=== PATIENT | female | born 1950 | race African-American/Black ===

== ENCOUNTER 2022-07-20 09:58 | Inpatient (IN) ==
[2022-07-20 10:38] LABS: Basophils # 0.1 10*3/uL (0.0-0.2); Basophils % 0.4 % (0.0-0.8); Eosinophils # 0.1 10*3/uL (0.0-0.87); Eosinophils % 0.4 % (0.00-10.9); Hematocrit 30.3 VOL% (35.7-47.0); Hemoglobin 9.7 GM/DL (12.0-16.0); Immature Granulocytes % 0.7 %; Immature Granulocytes Absolute 0.09 #; Lymphocytes # 0.6 10*3/uL (1.4-4.0); Lymphocytes % 4.7 % (21.3-54.2); Mean Corpuscular Volume 78.5 FL (87-102); Mean Platelet Volume 10.9 FL (9.6-12.0); Monocytes # 0.9 10*3/uL (0.11-0.8); Monocytes % 6.5 % (1.7-12.7); Neutrophils % 87.3 % (38.7-73.9); Platelet Count 296 T/CUMM (130-400); Red Blood Count 3.86 MC/CUMM (3.8-5.5); Red Cell Distribution Width 15.5 % (9.3-17.3); White Blood Count 13.7 T/CUMM (4-12)
[2022-07-20 10:57] LABS: Hypochromia Slight; Lymphocytes 1 % (20-55); Microcytosis Slight; Platelet Estimate Adequate; Total Cells Counted 100
[2022-07-20 11:12] LABS: Albumin 2.7 G/DL (3.4-5.0); Bilirubin,Total 0.5 MG/DL (0.20-1.00); Calcium 8.7 MG/DL (8.5-10.1); Free T4 (Free Thyroxine) 1.26 NG/DL (0.76-1.46); Osmolality,Calculated 271.2 MOS/KG (273-304); Thyroid Stimulating Hormone 0.37 uIU/ml (0.358-3.74); Total Protein 8.4 G/DL (6.4-8.2)
[2022-07-20 11:21] LABS: Potassium 2.1 MMOL/L (3.5-5.1)
[2022-07-20] MEDS ORDERED: POTASSIUM CHLORIDE 20 MEQ TABLET PO STA (11:23)
[2022-07-20] MEDS: SODIUM CHLOR 0.9% KCL 40 MEQ 40 MEQ/1,000 ML BAG IV SCH ×2 (11:34→23:13)
[2022-07-20] MEDS ORDERED: ONDANSETRON 4 MG/2 ML VIAL IV PRN (11:51)
[2022-07-20] MEDS ORDERED: ACETAMINOPHEN 325 MG TABLET PO PRN (11:51)
[2022-07-20] MEDS ORDERED: GLUCAGON 1 MG VIAL IM PRN (11:54)
[2022-07-20] MEDS ORDERED: DEXTROSE 10% 250 ML BAG IV PRN (11:54)
[2022-07-20 12:29] LABS: Risk Ratio 2.63; VLDL Cholesterol 19.8 MG/DL
[2022-07-20] MEDS: INSULIN LISPRO 100 UNIT/ML SUBCUT SCH ×2 (16:06→20:44)
[2022-07-20] MEDS ORDERED: POTASSIUM CHLORIDE 20 MEQ TABLET PO ONE ×2 (17:14→23:15)
[2022-07-20] MEDS: GABAPENTIN 300 MG CAPSULE PO SCH (21:02)
[2022-07-20] MEDS: traZODone 50 MG TABLET PO SCH (21:02)
[2022-07-21 05:23] LABS: Basophils % 0.3 % (0.0-0.8); Eosinophils % 0.1 % (0.00-10.9); Hematocrit 30.8 VOL% (35.7-47.0); Hemoglobin 9.1 GM/DL (12.0-16.0); Immature Granulocytes % 0.5 %; Immature Granulocytes Absolute 0.06 #; Lymphocytes % 7.4 % (21.3-54.2); Mean Corpuscular HGB Conc 29.5 GM/DL (32-36); Mean Corpuscular Volume 82.1 FL (87-102); Mean Platelet Volume 11.3 FL (9.6-12.0); Monocytes # 1.3 10*3/uL (0.11-0.8); Neutrophils % 81.7 % (38.7-73.9); Platelet Count 278 T/CUMM (130-400); Red Blood Count 3.75 MC/CUMM (3.8-5.5); Red Cell Distribution Width 15.8 % (9.3-17.3); White Blood Count 13.1 T/CUMM (4-12)
[2022-07-21 05:37] LABS: Calcium 8.9 MG/DL (8.5-10.1); Osmolality,Calculated 278.7 MOS/KG (273-304); Potassium 3.1 MMOL/L (3.5-5.1)
[2022-07-21 05:43] LABS: % Iron Saturation 6.6 % (18-50); Ferritin 103.4 ng/mL (8-252)
[2022-07-21] MEDS: POTASSIUM CHLORIDE RIDER 10 MEQ/100 ML PREMIX IV PRN ×4 (06:11→17:15)
[2022-07-21] MEDS: SODIUM CHLOR 0.9% KCL 40 MEQ 40 MEQ/1,000 ML BAG IV SCH (06:37)
[2022-07-21] MEDS ORDERED: POTASSIUM CHLORIDE 20 MEQ TABLET PO ONE (07:13)
[2022-07-21] MEDS: ASPIRIN EC 81 MG TABLET PO SCH (08:17)
[2022-07-21] MEDS: CHOLECALCIFEROL 5,000 UNIT TABLET PO SCH (08:17)
[2022-07-21] MEDS: ATORVASTATIN 40 MG TABLET PO SCH (08:17)
[2022-07-21] MEDS: CLOPIDOGREL 75 MG TABLET PO SCH (08:17)
[2022-07-21] MEDS: INSULIN LISPRO 100 UNIT/ML SUBCUT SCH ×4 (08:17→21:41)
[2022-07-21] MEDS: PANTOPRAZOLE 40 MG TABLET PO SCH (08:17)
[2022-07-21] MEDS: FERROUS SULFATE 325 MG TABLET PO SCH ×2 (08:17→21:55)
[2022-07-21] MEDS ORDERED: IRON (CARBONYL)/VIT C/B12/FA TABLET PO SCH (09:00)
[2022-07-21 10:59] LABS: Amorphous Crystals,Urine Few /HPF (Few); Mucus,Urine Occasional /LPF (Occasional); Squamous Epithelial Cell,Urine Occasional /HPF (0-10)
[2022-07-21 11:00] LABS: Urine Appearance Slightly Hazy (Clear); Urine Color Yellow (Yellow); Urine pH 5.5 (4.5-8.0)
[2022-07-21 11:01] LABS: Bilirubin,Urine Negative (Negative); Blood, Urine Moderate mg/dL (Negative); Glucose,Urine (UA) 100 mg/dL (Negative); Ketones,Urine Negative (Negative); Nitrite,Urine Negative (Negative); Urine Specific Gravity 1.025 (1.001-1.035); Urine Urobilinogen 0.2 eU/dL (<2.0)
[2022-07-21] MEDS: metroNIDAZOLE INJ 500 MG/100 ML PREMIX IV SCH ×2 (13:06→21:55)
[2022-07-21] MEDS: CIPROFLOXACIN INJ 400 MG/200 ML PREMIX IV SCH (15:29)
[2022-07-21] MEDS: traZODone 50 MG TABLET PO SCH (21:40)
[2022-07-21] MEDS: GABAPENTIN 300 MG CAPSULE PO SCH (21:55)
[2022-07-22] MEDS: SODIUM CHLOR 0.9% KCL 40 MEQ 40 MEQ/1,000 ML BAG IV SCH ×3 (02:53→13:39)
[2022-07-22] MEDS: CIPROFLOXACIN INJ 400 MG/200 ML PREMIX IV SCH ×2 (03:06→16:09)
[2022-07-22] MEDS: metroNIDAZOLE INJ 500 MG/100 ML PREMIX IV SCH ×3 (04:18→20:47)
[2022-07-22 05:56] LABS: Basophils % 0.4 % (0.0-0.8); Eosinophils # 0.1 10*3/uL (0.0-0.87); Eosinophils % 0.6 % (0.00-10.9); Hematocrit 25.9 VOL% (35.7-47.0); Hemoglobin 8.1 GM/DL (12.0-16.0); Immature Granulocytes % 0.7 %; Immature Granulocytes Absolute 0.07 #; Lymphocytes # 0.8 10*3/uL (1.4-4.0); Lymphocytes % 8.2 % (21.3-54.2); Mean Corpuscular HGB Conc 31.3 GM/DL (32-36); Mean Corpuscular Volume 79.9 FL (87-102); Mean Platelet Volume 11.4 FL (9.6-12.0); Monocytes # 1.2 10*3/uL (0.11-0.8); Neutrophils % 78.1 % (38.7-73.9); Platelet Count 266 T/CUMM (130-400); Red Blood Count 3.24 MC/CUMM (3.8-5.5); White Blood Count 9.9 T/CUMM (4-12)
[2022-07-22 06:19] LABS: Calcium 8.4 MG/DL (8.5-10.1); Osmolality,Calculated 276.7 MOS/KG (273-304); Potassium 2.6 MMOL/L (3.5-5.1)
[2022-07-22] MEDS ORDERED: MAGNESIUM SULF RIDER 2 GM/50 ML PREMIX IV PRN (06:34)
[2022-07-22] MEDS: POTASSIUM CHLORIDE 20 MEQ TABLET PO PRN (07:34)
[2022-07-22] MEDS ORDERED: MAGNESIUM SULF RIDER 2 GM/50 ML PREMIX IV ONE (09:00)
[2022-07-22] MEDS: FERROUS SULFATE 325 MG TABLET PO SCH ×2 (09:34→20:47)
[2022-07-22] MEDS: PANTOPRAZOLE 40 MG TABLET PO SCH (09:34)
[2022-07-22] MEDS: ATORVASTATIN 40 MG TABLET PO SCH (09:34)
[2022-07-22] MEDS: CLOPIDOGREL 75 MG TABLET PO SCH (09:34)
[2022-07-22] MEDS: ASPIRIN EC 81 MG TABLET PO SCH (09:34)
[2022-07-22] MEDS: INSULIN LISPRO 100 UNIT/ML SUBCUT SCH ×4 (09:35→23:29)
[2022-07-22] MEDS: CHOLECALCIFEROL 5,000 UNIT TABLET PO SCH (09:35)
[2022-07-22] MEDS: LOPERAMIDE 2 MG CAPSULE PO SCH ×2 (16:08→20:47)
[2022-07-22] MEDS: traZODone 50 MG TABLET PO SCH (20:47)
[2022-07-22] MEDS: GABAPENTIN 300 MG CAPSULE PO SCH (20:47)
[2022-07-22] MEDS: POTASSIUM CHLORIDE RIDER 10 MEQ/100 ML PREMIX IV PRN ×2 (20:48→23:36)
[2022-07-23] MEDS: POTASSIUM CHLORIDE RIDER 10 MEQ/100 ML PREMIX IV PRN ×3 (01:09→04:19)
[2022-07-23] MEDS: CIPROFLOXACIN INJ 400 MG/200 ML PREMIX IV SCH (02:17)
[2022-07-23] MEDS: LOPERAMIDE 2 MG CAPSULE PO SCH ×2 (02:17→08:47)
[2022-07-23] MEDS: metroNIDAZOLE INJ 500 MG/100 ML PREMIX IV SCH (04:20)
[2022-07-23 07:39] LABS: Basophils % 0.3 % (0.0-0.8); Eosinophils # 0.2 10*3/uL (0.0-0.87); Eosinophils % 1.6 % (0.00-10.9); Hematocrit 26.6 VOL% (35.7-47.0); Hemoglobin 8.2 GM/DL (12.0-16.0); Immature Granulocytes % 0.8 %; Immature Granulocytes Absolute 0.07 #; Lymphocytes # 0.9 10*3/uL (1.4-4.0); Lymphocytes % 9.5 % (21.3-54.2); Mean Corpuscular HGB Conc 30.8 GM/DL (32-36); Mean Corpuscular Volume 80.9 FL (87-102); Mean Platelet Volume 11.1 FL (9.6-12.0); Monocytes # 1.1 10*3/uL (0.11-0.8); Monocytes % 11.5 % (1.7-12.7); Neutrophils % 76.3 % (38.7-73.9); Platelet Count 278 T/CUMM (130-400); Red Blood Count 3.29 MC/CUMM (3.8-5.5); Red Cell Distribution Width 16.2 % (9.3-17.3); White Blood Count 9.1 T/CUMM (4-12)
[2022-07-23 07:58] LABS: Albumin 2.4 G/DL (3.4-5.0); Bilirubin,Total 0.5 MG/DL (0.20-1.00); Calcium 8.7 MG/DL (8.5-10.1); Osmolality,Calculated 279.4 MOS/KG (273-304); Potassium 3.2 MMOL/L (3.5-5.1); Total Protein 7.5 G/DL (6.4-8.2)
[2022-07-23] MEDS: INSULIN LISPRO 100 UNIT/ML SUBCUT SCH ×2 (08:46→11:51)
[2022-07-23] MEDS: SODIUM CHLOR 0.9% KCL 40 MEQ 40 MEQ/1,000 ML BAG IV SCH ×2 (08:46→09:46)
[2022-07-23] MEDS: FERROUS SULFATE 325 MG TABLET PO SCH (08:47)
[2022-07-23] MEDS: CLOPIDOGREL 75 MG TABLET PO SCH (08:47)
[2022-07-23] MEDS: CHOLECALCIFEROL 5,000 UNIT TABLET PO SCH (08:47)
[2022-07-23] MEDS: ATORVASTATIN 40 MG TABLET PO SCH (08:47)
[2022-07-23] MEDS: ASPIRIN EC 81 MG TABLET PO SCH (08:47)
[2022-07-23] MEDS: PANTOPRAZOLE 40 MG TABLET PO SCH (08:47)
[2022-07-23] MEDS: POTASSIUM CHLORIDE 20 MEQ TABLET PO PRN (11:33)
[2022-07-23] MEDS ORDERED: POTASSIUM CHLORIDE 20 MEQ TABLET PO ONE (11:57)
[2022-07-23 12:27] VITALS: BP 122/55
[2022-07-23] MEDS ORDERED: metroNIDAZOLE 500 MG TABLET PO SCH (15:00)
[2022-07-23] MEDS ORDERED: CIPROFLOXACIN 500 MG TABLET PO SCH (21:00)
== END 2022-07-23 14:00 | disposition home or self-care (01) | DRG 392 ==
LOC: N.ED 09:58 → N.EDINP 09:58 → N.2E 15:00 → SUATTDRO 07-21 09:27
PROVIDERS: ADMIT Internal Medicine; ATTEND Family Medicine